=== PATIENT | female | born 1990 | race African-American/Black ===

== ENCOUNTER 2025-01-15 17:45 | Emergency (ER) | payer MEDICAID ==
[~2025-01-15] VITALS: Ht 165.1 cm; Wt 63.5 kg
[2025-01-15 17:57] VITALS: O2SAT 100
[2025-01-15] MEDS: ACETAMINOPHEN 500MG TABLET PO ONE (19:22)
[2025-01-15] MEDS: TETANUS, DIPHTHERIA, PERTUSSIS VAC/PF 0.5ML (>10YR OLD) IM ONE (19:22)
[2025-01-15] MEDS ORDERED: IBUP-2029 MT (21:26)
[2025-01-15 21:43] VITALS: BP 120/69; PULSE 114; RESP 16; TEMP 37.1; O2SAT 100
[2025-01-15] MEDS: KETOROLAC 30MG/ML VIAL IM ONE (21:43)
== END 2025-01-15 21:59 | disposition home or self-care (01) ==
LOC: ER 17:45
DX: S01.01XA Laceration without foreign body of scalp, initial encounter (principal); W10.9XXA Fall (on) (from) unspecified stairs and steps, initial encounter; Y93.89 Activity, other specified; Y92.89 Other specified places as the place of occurrence of the external cause; Y99.8 Other external cause status
CPT/HCPCS: 81025; 71045; 70450; 72125; 90715; 12001; 90471; 96372; 99285; J1885; Z7610